=== PATIENT | male | born 1950 | race Caucasian/White ===

== ENCOUNTER 2019-11-29 11:31 | Emergency (ER) | payer MEDICARE, SELFPAY ==
[2019-11-29] VITALS (7 sets, daily range): BP systolic 115–176; BP diastolic 60–95; PULSE 62–73; RESP 13–17; TEMP 36.7; O2SAT 97–99; BMI 26.2
--- NOTE | 2019-11-29 11:40 | PC.NURSE ---
Pt having right flank pain with dark urine,hx kidney stones
--- NOTE | 2019-11-29 12:01 | DI.CT.S_ITS ---
PROCEDURE: CT ABDOMEN PELVIS WO CON INDICATIONS: right side flank pain TECHNIQUE: Noncontrast 5 mm thick sections acquired from the diaphragms to the symphysis. 5 mm coronal and sagittal reformats were then performed. For radiation dose reduction, the following was used: automated exposure control, adjustment of mA and/or kV according to patient size. COMPARISON: None. FINDINGS: Image quality: Excellent. ABDOMEN: Lung bases: Lung bases are clear. Heart size is normal. Solid organs: Liver is normal in size. Gallbladder is within normal limits . Pancreas is normal in contours. Spleen is normal in size. No adrenal nodules. There is moderate right perinephric fat stranding and mild right renal enlargement. There are a few adjacent nonobstructing calculi within the inferior pole right kidney posteriorly, largest of which measures 5 mm diameter. There are a few small nonobstructing calculi within the left inferior pole and interpolar kidney, largest of which is in the inferior pole measuring 4 mm. No left hydronephrosis. Left ureter is within normal limits. There is mild right hydronephrosis. There is a right proximal ureteral calculus measuring 4 mm diameter and 484 Hounsfield units. Peritoneum and bowel: Unenhanced bowel loops demonstrate normal wall thickness and caliber. No free fluid or air. Appendix is not seen. No evidence of appendicitis. Nodes and vessels: No retroperitoneal or mesenteric adenopathy by size criteria. Aorta and inferior vena cava are normal in caliber. Miscellaneous: No ventral hernias. PELVIS: Genitourinary: Urinary bladder is decompressed. Miscellaneous: No inguinal hernias or adenopathy. Bones: No suspicious bony lesions. No vertebral body compression fractures. IMPRESSION: 1. Right proximal ureteral calculus associated with mild right hydronephrosis. 2. Nonobstructing bilateral intrarenal calculi. 3. Appendix not seen. No evidence of appendicitis. Dictated by: Dorita Montalvo M.D. on 11/29/2019 at 11:29 Approved by: Dorita Montalvo M.D. on 11/29/2019 at 11:32
[2019-11-29] MEDS: KETOROLAC 60 MG/2 ML VIAL 15 MG IV (12:07)
[2019-11-29 12:14] LABS: Add Manual Diff / Slide Review NO; Basophils Absolute Auto 0 /uL (0-100); Basophils Percent Auto 0.2 % (0-2); Eosinophils Absolute Auto 0 /uL (0-450); Eosinophils Percent Auto 0.2 % (2-4); Hematocrit 41.4 % (41-53); Lymphocytes Absolute Auto 1300 /uL (1100-4500); Lymphocytes Percent Auto 13.1 % (25-40); Mean Corpuscular HGB Conc 33.9 % (30-36); Mean Corpuscular Hemoglobin 30.8 PG (26-34); Monocytes Absolute Auto 400 /uL (0-900); Monocytes Percent Auto 4.1 % (3-14); Neutrophils Absolute Auto 8400 /uL (1500-7000); Neutrophils Percent Auto 82.4 % (50-75); Platelet Count 293 X10^3/uL (150-400); Red Blood Cell Count 4.55 X10^6/uL (4.5-5.9); White Blood Cell Count 10.3 X10^3/uL (4.5-11.0)
[2019-11-29 12:34] LABS: Ictotest Urine Negative (Negative); RBC Urine >100/HPF (0-5/HPF); WBC Urine 5-10/HPF (0-5/HPF)
[2019-11-29 12:35] LABS: Bacteria Urine Many (>30); Culture Indicated Urine Specimen Cultured
--- NOTE | 2019-11-29 12:46 | ED_ITS ---
HPI - Male Genitourinary General Chief complaint: Urogenital-Male Stated complaint: R Flank Pain Source: patient and EMS Mode of arrival: EMS Limitations: no limitations History of Present Illness HPI Narrative: CC: Right flank pain HPI: The patient is a 69-year-old male who at approximately 2:00 a.m. in the morning woke up with severe right flank pain. He was unable to sleep from 2-4 a.m.. He then for fell asleep and slept from 4-6 and then woke up again with severe right flank pain. He describes the flank pain as a crampy sharp stabbing pain. He has had partial intermittent relief that has been intermittent. He was traveling from [address] [place] [address] to the hospital and in route EMS provided 2 mg boluses of morphine to control his pain up to a total of 14 mg IV. The patient also received 4 mg of Zofran and after arriving in the emergency department was administered 15 mg of Toradol which controlled his pain and discomfort. He states that he has been told that he has had stones in his kidney but has never had a ureteral stone. He denies any fever chills sweats but has been intensely nauseous with occasional vomiting. His pain has been 7- 10 over 10 in intensity. He admits that 7 years ago he had ablations for atrial fibrillation and is not on any anticoagulation. He denies a history of p ancreatitis diabetes mellitus myocardial infarction COPD but has had hypertension. He denies any chills or sweats shortness of breath cough chest pain palpitations dizziness fainting melena hematochezia. The patient is a former smoker the Aleve drinks alcohol and periodically uses marijuana. Related Data Previous Rx's Medication Instructions Recorded cephalexin [Keflex] 500 mg PO QID #20 cap 11/29/19 ondansetron HCl [Zofran] 4 mg PO Q6H PRN #10 tab 11/29/19 oxycodone 10 mg PO Q8H PRN #10 tab 11/29/19 tamsulosin [Flomax] 0.4 mg PO DAILY #7 cap 11/29/19 tramadol 50 mg PO Q6H PRN #12 tab 11/29/19 Allergies Allergy/AdvReac Type Severity Reaction Status Date / Time No Known Drug Allergies Allergy Verified 11/29/19 11:37 Review of Systems Review of Systems Narrative: His review of systems were all negative except for those mentioned in the history of present illness. Patient History Social History Smoking Status: Former smoker Smoking Status: Former smoker alcohol intake frequency: 3 or more drinks per day Substance Use Type: does not use Exam Narrative Exam Narrative: PHYSICAL EXAM: CONSTITUTIONAL: Awake, Alert, Oriented, Coherent, Cooperative in NAD. Does not a ppear toxic or ill. HEAD: AT/NC EENT: PERRL, FROM of eyes. NOSE:No epistaxis or nasal drainage MOUTH:Oral mucosa is moist and pink, posterior pharynx is without erythema or exudate. NECK: Supple, no obvious JVD, Trachea is midline without stridor. SPINE: Palpation of the cervical, Thoracic, Lumbar or Sacral spine reveals no gross deformity or tenderness. No CVA tenderness. THORAX: No deformity, retractions, chest wall tenderness. LUNGS: Clear, symmetrical breath sounds without respiratory distress. HEART: Normal heart tones, regular rhythm and rate without murmur. ABDOMEN: Soft, non-tender, normal bowel sounds without guarding, rebound, rigidity or palpable mass. EXTREMITIES: No edema, deformity, tenderness . SKIN: No rash, bruising, petechiae or purpura. NEURO: Awake, alert, oriented, conversive, cranial nerves II-XII are symmetrical , moves all 4 extremities and is ambulatory. MENTAL HEALTH: Does not appear anxious or depressed. Initial Vital Signs Initial Vital Signs: Vital Signs Temperature 98.0 F 11/29/19 11:34 Pulse Rate 65 11/29/19 11:34 Respiratory Rate 13 11/29/19 11:34 Blood Pressure 176/95 H 11/29/19 11:34 Pulse Oximetry 99 11/29/19 11:34 Course Course Course Narrative: 1246 the patient's pain is currently under control after he received a total of 14 mg of morphine sulfate per EMS 12.5 mg of Phenergan IV and 4 mg of Zofran and 15 mg of Toradol in the emergency department. The CT scan of the patient's abdomen and pelvis revealed:There are a few small nonobstructing calculi within the left inferior pole and interpolar kidney, largest of which is in the inferior pole measuring 4 mm. No left hydronephrosis. Left ureter is within normal limits. There is mild right hydronephrosis. There is a right proximal ureteral calculus measuring 4 mm diameter and 484 Hounsfield units. IMPRESSION: 1. Right proximal ureteral calculus associated with mild right hydronephrosis. 2. Nonobstructing bilateral intrarenal calculi. 3. Appendix not seen. No evidence of appendicitis. 1257: Discussed with Dr. Hunter get a Covid swab in case he has to be admitted and I have to place a stent in his ureter. 1329: I discussed the options with the patient who agrees to go home. They are planning to return to [facility]. I then informed him that if he develops recurrent pain uncontrolled by the pain medications he needs to proceed to the nearest emergency department for analgesic relief. He should notify his primary care physician as soon as possible so that he can be referred to urologist arm in [place]. Orders Ordered: ED Orders 11/29/19 11:10 Complete Blood Count AUTO DIFF Stat 11/29/19 12:01 CT abdomen pelvis wo con Stat 11/29/19 12:06 Ictotest Urine Stat Urine Culture Stat Urine Microscopic Stat Discontinued Medications Hydromorphone HCl (Dilaudid) 1 mg IV NOW ONE Stop: 11/29/19 12:03 Last Admin: 11/29/19 13:29 Dose: Not Given Documented by: PERRY Sodium Chloride (Normal Saline 0.9%) 1,000 mls @ 150 mls/hr IV CONT YESI Last Admin: 11/29/19 14:06 Dose: Not Given Documented by: PERRY Ketorolac Tromethamine (Toradol) 15 mg IV NOW ONE Stop: 11/29/19 12:03 Last Admin: 11/29/19 12:07 Dose: 15 mg Documented by: PERRY Morphine Sulfate (Morphine) 4 mg IV NOW ONE Stop: 11/29/19 12:01 Last Admin: 11/29/19 12:03 Dose: Not Given Documented by: YOLANDE Tamsulosin HCl (Flomax) 0.4 mg PO NOW ONE Stop: 11/29/19 12:46 Last Admin: 11/29/19 12:52 Dose: 0.4 mg Documented by: PERRY Vital Signs Vital signs: Vital Signs - 8 hr 11/29/19 11:34 11/29/19 11:35 11/29/19 12:02 Temperature 98.0 F Pulse Rate 65 64 62 Respiratory Rate 13 14 17 Blood Pressure 176/95 H 176/95 H 156/74 H Pulse Oximetry 99 99 11/29/19 12:34 11/29/19 12:56 11/29/19 13:00 Temperature Pulse Rate 73 67 Respiratory Rate 15 Blood Pressure 121/66 121/62 Pulse Oximetry 98 97 11/29/19 13:30 Temperature Pulse Rate 66 Respiratory Rate 16 Blood Pressure 115/60 Pulse Oximetry 98 MDM - Male Genitourinary Medical Records Attestation: I reviewed the patient's medical records. Lab Data Attestation: I reviewed the patient's lab results. Result diagrams: 11/29/19 11:10 Labs: Lab Results 11/29/19 11/29/19 Range/Units 11:10 12:06 WBC 10.3 (4.5-11.0) X10^3/uL RBC 4.55 (4.5-5.9) X10^6/uL Hgb 14.0 (13.5-17.5) g/dL Hct 41.4 (41-53) % MCV 91.0 (80-100) fL MCH 30.8 (26-34) PG MCHC 33.9 (30-36) % RDW 14.0 (11.6-14.8) % Plt Count 293 (150-400) X10^3/uL Neut % (Auto) 82.4 H (50-75) % Lymph % (Auto) 13.1 L (25-40) % Fajardo % (Auto) 4.1 (3-14) % Eos % (Auto) 0.2 L (2-4) % Baso % (Auto) 0.2 (0-2) % Neut # (Auto) 8400 H (2715-6998) /uL Lymph # (Auto) 1300 (1627-8982) /uL Fajardo # (Auto) 400 (0-900) /uL Eos # (Auto) 0 (0-450) /uL Baso # (Auto) 0 (0-100) /uL Ur Bilirubin Confirm Negative (Negative) Urine RBC >100/hpf H (0-5/HPF) Urine WBC 5-10/hpf H (0-5/HPF) Urine Bacteria Many (>30) H (None) Ur Culture Indicated? Specimen cultured Urine Dip Bedside Urine Glucose Negative Bedside Urine Bilirubin + 1 Bedside Urine Ketone ++ 40 Urine Specific Manning 1.015 Bedside Urine Occult Blood +++ Bedside Urine pH 8.0 Bedside Urine Protein + 30 Bedside Urine Urobilinogen - Negative Bedside Urine Nitrite - Negative Bedside Urine Leukocytes + 70 Esterase Discharge Plan Departure Patient Disposition: Home Clinical Impression: Ureteric colic, Right ureteral stone Urinary tract infection Qualifiers: Urinary tract infection type: site unspecified Hematuria presence: with hematuria Qualified Code(s): N39.0 - Urinary tract infection, site not specified Hydronephrosis Qualifiers: Hydronephrosis type: with ureteral calculous obstruction Qualified Code(s): N13.2 - Hydronephrosis with renal and ureteral calculous obstruction Discharge Date/Time: 11/29/19 14:07 Instructions: DI for Kidney Stones, DI for Urinary Tract Infection (UTI) Activity Restrictions/Additional Instructions: 1. The CT scan reveals that you have a mildly swollen right kidney with a 4 mm stone in the proximal ureter. When the stone obstruction or ureter you may de velop severe pain and discomfort. You should be able to pass this stone in 24- 48 hours. The medications prescribed should help control your pain and discomfort. It may not take the pain totally completely away but it should make the pain tolerable. If it does not control the pain and discomfort you need to proceed to the nearest emergency department in [place] upon returning home. 2,. For the rest of the day stay on a clear liquid to soft diet. You should be NPO after midnight and patient need to go to the hospital to be evaluated for stent placement either here in [facility] or in [place]. 3. Take the tramadol 50 mg every 6 hours for the next 48 hours to control your pain and discomfort 4. Take acetaminophen/Tylenol 500 mg every 4 hours for the next 48 hours. 5. If this regimen does not control your pain and discomfort take the oxycodone as a rescue medicine as needed every 8 hours. 6. Take the Zofran 3 to 4 times a day as needed for nausea and vomiting 7. Take Keflex 500 mg every 6 hours for the next 5 days since you had numerous bacteria and white blood cells in your urine Prescriptions: New tramadol 50 mg tablet 50 mg PO Q6H PRN (Reason: pain) Qty: 12 RF: 0 tamsulosin [Flomax] 0.4 mg capsule 0.4 mg PO DAILY Qty: 7 RF: 0 oxycodone 10 mg tablet 10 mg PO Q8H PRN (Reason: pain) Qty: 10 RF: 0 cephalexin [Keflex] 500 mg capsule 500 mg PO QID Qty: 20 RF: 0 ondansetron HCl [Zofran] 4 mg tablet 4 mg PO Q6H PRN (Reason: nausea and vomiting) Qty: 10 RF: 0
[2019-11-29] MEDS: TAMSULOSIN 0.4 MG CAPSULE PO (12:52)
== END 2019-11-29 14:07 | disposition home or self-care (01) ==
PROVIDERS: Emergency Provider Emergency Medicine
DX: N13.2 Hydronephrosis with renal and ureteral calculous obstruction (principal); N39.0 Urinary tract infection, site not specified; N23 Unspecified renal colic
CPT/HCPCS: 74176; 81003; 81015; 85025; 87086; 96374; 99284; J1885